=== PATIENT | female | born 1985 | race Caucasian/White ===

== ENCOUNTER 2018-01-01 18:55 | Inpatient (IN) | payer MEDICAID ==
[2018-01-01] MEDS ORDERED: CARBOPROST 250 MCG INJ IM (21:30)
[2018-01-01] MEDS ORDERED: METHYLERGONOVINE 0.2 MG INJ IM (21:30)
[2018-01-01] MEDS ORDERED: MISOPROSTOL 200 MCG TAB PR (21:30)
[2018-01-01] MEDS ORDERED: IBUPROFEN 600 MG TAB PO (21:30)
[2018-01-01] MEDS ORDERED: LIDOCAINE 1% (MPF) 30 ML INJ INJ (21:30)
[2018-01-01] MEDS ORDERED: OXYTOCIN 30 UNITS/LR 500 ML IV (21:30)
[2018-01-01] MEDS: LACTATED RINGER'S 1,000 ML IV (22:41)
[2018-01-01 23:44] LABS: ADD MAN DIFF? NO
[2018-01-01 23:48] LABS: BASOPHILS % 0.3 % (0.0-2.0); EOSINOPHILS # 0.1 10^3/ul (0.0-0.5); EOSINOPHILS % 0.7 % (0.0-7.0); HEMATOCRIT 34.8 % (37.0-47.0); LYMPHOCYTES # 2.5 10^3/ul (0.8-2.9); LYMPHOCYTES % 22.4 % (15.0-51.0); MEAN CORPUSCULAR HEMOGLOBIN 30.5 pg (29.0-33.0); MEAN CORPUSCULAR HGB CONC 34.5 g/dl (32.0-37.0); MEAN CORPUSCULAR VOLUME 88.5 fl (82.0-101.0); MEAN PLATELET VOLUME 10.5 fl (7.4-10.4); MONOCYTE # 0.7 10^3/ul (0.3-0.9); MONOCYTES % 6.7 % (0.0-11.0); NEUTROPHIL # 7.7 10^3/ul (1.6-7.5); NEUTROPHILS % 69.4 % (39.0-77.0); PLATELET COUNT 152 10^3/UL (140-415); RED BLOOD COUNT 3.93 10^6/ul (4.20-5.40); RED CELL DISTRIBUTION WIDTH 12.5 % (11.5-14.5)
[2018-01-01 23:48] LABS: WHITE BLOOD COUNT 11.1 10^3/ul (4.8-10.8)
[2018-01-01] MEDS: MISOPROSTOL 25 MCG CAPSULE PO (23:49)
[2018-01-02] MEDS: AMPICILLIN 2 GM/NS (PMX) 100 ML IV (00:40)
[2018-01-02 01:11] LABS: INR 0.85; PROTIME 11.7 Sec (11.9-14.9); PT RATIO 0.9
[2018-01-02 01:12] LABS: PARTIAL THROMBOPLASTIN TIME 27.8 Sec (25.0-35.0)
[2018-01-02] MEDS: MISOPROSTOL 25 MCG CAPSULE PO (04:19)
[2018-01-02] MEDS: AMPICILLIN 1 GM/NS (PMX) 50 ML IV ×2 (04:20→05:30)
[2018-01-02] MEDS: BUTORPHANOL 2 MG INJ IV (05:56)
[2018-01-02] MEDS: LACTATED RINGER'S 1,000 ML IV (05:57)
[2018-01-02] MEDS: OXYTOCIN 30 UNITS/LR 500 ML IV ×2 (07:24→08:08)
[2018-01-02] MEDS ORDERED: ONDANSETRON 4 MG INJ IV (08:30)
[2018-01-02] MEDS ORDERED: CARBOPROST 250 MCG INJ IM (08:30)
[2018-01-02] MEDS ORDERED: ZOLPIDEM 5 MG TAB PO (08:30)
[2018-01-02] MEDS ORDERED: WITCH HAZEL/GLYCERIN PAD PR (08:30)
[2018-01-02] MEDS ORDERED: DIPHENHYDRAMINE 25 MG CAP PO (08:30)
[2018-01-02] MEDS ORDERED: MISOPROSTOL 200 MCG TAB PR (08:30)
[2018-01-02] MEDS ORDERED: METHYLERGONOVINE 0.2 MG INJ IM (08:30)
[2018-01-02] MEDS ORDERED: OXYTOCIN 30 UNITS/LR 500 ML IV (08:30)
[2018-01-02] MEDS ORDERED: ACETAMINOPHEN 325 MG TAB PO (08:30)
[2018-01-02] MEDS: SENNA/DOCUSATE NA (8.6MG/50MG) TAB PO ×2 (11:33→22:14)
[2018-01-02] MEDS: IBUPROFEN 600 MG TAB PO ×2 (11:33→17:59)
[2018-01-02] MEDS: LANOLIN 7 GM TUBE TOP (11:34)
[2018-01-02 15:52] LABS: RAPID PLASMA REAGIN NONREACTIVE (NR)
[2018-01-02] MEDS ORDERED: MISOPROSTOL 25 MCG CAPSULE PO (22:00)
[2018-01-02] MEDS: HYDROCODONE/APAP (5/325) TAB PO (22:15)
[2018-01-03] MEDS: IBUPROFEN 600 MG TAB PO ×4 (00:23→17:35)
[2018-01-03 07:41] LABS: ADD MAN DIFF? NO
[2018-01-03 07:54] LABS: BASOPHIL # 0.1 10^3/ul (0.0-0.1); BASOPHILS % 0.3 % (0.0-2.0); EOSINOPHILS # 0.1 10^3/ul (0.0-0.5); EOSINOPHILS % 0.6 % (0.0-7.0); HEMATOCRIT 28.9 % (37.0-47.0); HEMOGLOBIN 10.2 g/dl (12.0-16.0); LYMPHOCYTES # 3.2 10^3/ul (0.8-2.9); LYMPHOCYTES % 17.4 % (15.0-51.0); MEAN CORPUSCULAR HEMOGLOBIN 31.8 pg (29.0-33.0); MEAN CORPUSCULAR HGB CONC 35.3 g/dl (32.0-37.0); MEAN PLATELET VOLUME 11.1 fl (7.4-10.4); MONOCYTES % 5.7 % (0.0-11.0); NEUTROPHIL # 13.7 10^3/ul (1.6-7.5); NEUTROPHILS % 75.2 % (39.0-77.0); PLATELET COUNT 125 10^3/UL (140-415); RED BLOOD COUNT 3.21 10^6/ul (4.20-5.40)
[2018-01-03 07:54] LABS: WHITE BLOOD COUNT 18.2 10^3/ul (4.8-10.8)
[2018-01-03] MEDS: SENNA/DOCUSATE NA (8.6MG/50MG) TAB PO (08:37)
[2018-01-03] MEDS: INFLUENZA VIRUS VACCINE 0.5 ML (DISPENSING) IM* (12:27)
== END 2018-01-03 18:00 | disposition home or self-care (01) | DRG 775 ==
LOC: OBT 18:55 → PP1 01-02 10:13 → L-D 18:56 → OBT 20:38 → L-D 20:38
PROVIDERS: Obstetrics & Gynecology
PROC: 4A1HXCZ Monitoring of Products of Conception, Cardiac Rate, External Approach (ICD-10-PCS; 2018-01-01)
PROC: 10E0XZZ Delivery of Products of Conception, External Approach (ICD-10-PCS; principal; 2018-01-02)
PROC: 3E0234Z Introduction of Serum, Toxoid and Vaccine into Muscle, Percutaneous Approach (ICD-10-PCS; 2018-01-03)
DX: O48.0 Post-term pregnancy (principal); O62.3 Precipitate labor; Z37.0 Single live birth; Z3A.40 40 weeks gestation of pregnancy; Z23 Encounter for immunization
CPT/HCPCS: 76815; 76818; 85025; 85610; 85730; 86592; 86850; 86900; 86901; 99464